=== PATIENT | female | born 1950 | race Caucasian/White ===

== ENCOUNTER 2019-06-10 18:14 | Outpatient (REF) | payer MEDICARE, SELFPAY ==
[2019-06-10 22:04] LABS: Anion Gap 7.5 mmol/L (3-11); BUN 7 mg/dL (7-18); CO2 30.5 mmol/L (21.0-32.0); CREATININE 0.84 mg/dL (0.55-1.02); Calcium 8.9 mg/dL (8.5-10.1); Calculated LDL 106 mg/dL; Chloride 106 mmol/L (98-107); Cholesterol 176 mg/dL (50-200); Glucose 87 mg/dL (70-100); HDL Cholesterol 49 mg/dL (40-60); Potassium 4.1 mmol/L (3.5-5.1); Sodium 144 mmol/L (136-145); Triglyceride 105 mg/dL (30-150)
== END 2019-06-10 18:34 ==
LOC: NCHCN 18:14
PROVIDERS: PCP Family Medicine; Visit Provider Family Medicine
DX: I10 Essential (primary) hypertension (principal); E78.5 Hyperlipidemia, unspecified
CPT/HCPCS: 80048; 80061

== ENCOUNTER 2020-03-23 10:53 | Outpatient (REF) | payer MEDICARE, SELFPAY ==
[2020-03-23 21:23] LABS: Anion Gap 7.6 mmol/L (3-11); BUN 10 mg/dL (7-18); CO2 29.4 mmol/L (21.0-32.0); Calcium 9.3 mg/dL (8.5-10.1); Chloride 103 mmol/L (98-107); Glucose 99 mg/dL (74-106); Potassium 4.5 mmol/L (3.5-5.1); Sodium 140 mmol/L (136-145)
[2020-03-23 21:33] LABS: Hemoglobin A1C 5.8 % (3.8-5.6)
== END 2020-03-23 11:13 ==
LOC: NCHCN 10:53
PROVIDERS: PCP Family Medicine; Visit Provider Family Medicine
DX: I10 Essential (primary) hypertension (principal); Z13.1 Encounter for screening for diabetes mellitus
CPT/HCPCS: 80048; 83036

== ENCOUNTER 2021-05-07 16:57 | Outpatient (REF) | payer MEDICARE, SELFPAY ==
[2021-05-07 21:18] LABS: Anion Gap 7.5 mmol/L (3-11); BUN 14 mg/dL (7-18); CO2 29.5 mmol/L (21.0-32.0); Calcium 9.3 mg/dL (8.5-10.1); Chloride 103 mmol/L (98-107); Estimated GFR 55.14 (mL/min/1.73m2); Glucose 91 mg/dL (74-106); Potassium 4.9 mmol/L (3.5-5.1); Sodium 140 mmol/L (136-145)
== END 2021-05-07 16:58 | disposition home or self-care (01) ==
LOC: NCHCN 16:57
PROVIDERS: PCP Family Medicine; Visit Provider Family Medicine
DX: I10 Essential (primary) hypertension (principal); Z12.2 Encounter for screening for malignant neoplasm of respiratory organs; F32.9 Major depressive disorder, single episode, unspecified; J44.9 Chronic obstructive pulmonary disease, unspecified; R73.03 Prediabetes; M54.5 Low back pain
CPT/HCPCS: 80048

== ENCOUNTER 2022-04-24 18:06 | Outpatient (REF) | payer MEDICARE, SELFPAY ==
[2022-04-24 13:40] LABS: Anion Gap 8.5 mmol/L (3-11); BUN 14 mg/dL (7-18); CO2 29.5 mmol/L (21.0-32.0); Calcium 9.1 mg/dL (8.5-10.1); Calculated LDL 66 mg/dL (<100); Chloride 103 mmol/L (98-107); Cholesterol 132 mg/dL (<200); Estimated GFR 54.97 (mL/min/1.73m2); Glucose 101 mg/dL (74-106); HDL Cholesterol 49 mg/dL (40-60); Potassium 4.8 mmol/L (3.5-5.1); Sodium 141 mmol/L (136-145); Triglyceride 85 mg/dL (<150)
== END 2022-04-24 18:07 | disposition home or self-care (01) ==
LOC: NCHCN 18:06
PROVIDERS: PCP Family Medicine; Visit Provider Family Medicine
DX: I10 Essential (primary) hypertension (principal); E78.5 Hyperlipidemia, unspecified
CPT/HCPCS: 80048; 80061

== ENCOUNTER 2023-05-19 10:40 | Outpatient (REF) | payer MEDICARE, SELFPAY ==
[2023-05-19 16:29] LABS: Anion Gap 8.3 mmol/L (3-11); BUN 13 mg/dL (7-18); CO2 27.7 mmol/L (21.0-32.0); Calcium 9.3 mg/dL (8.5-10.1); Calculated LDL 117 mg/dL (<100); Chloride 100 mmol/L (98-107); Cholesterol 195 mg/dL (<200); Estimated GFR 60.61 (mL/min/1.73m2); Glucose 91 mg/dL (74-106); HDL Cholesterol 47 mg/dL (40-60); Potassium 4.4 mmol/L (3.5-5.1); Sodium 136 mmol/L (136-145); Triglyceride 158 mg/dL (<150)
== END 2023-05-19 10:41 | disposition home or self-care (01) ==
LOC: NCHCN 10:40
PROVIDERS: PCP Family Medicine; Visit Provider Family Medicine
DX: I10 Essential (primary) hypertension (principal); E78.5 Hyperlipidemia, unspecified
CPT/HCPCS: 80048; 80061

== ENCOUNTER 2024-04-21 14:57 | Outpatient (REF) | payer MEDICARE, SELFPAY ==
[2024-04-21 21:50] LABS: Anion Gap 9.1 mmol/L (3-11); BUN 11 mg/dL (7-18); CO2 28.9 mmol/L (21.0-32.0); Calcium 9.6 mg/dL (8.5-10.1); Calculated LDL 64 mg/dL (<100); Chloride 102 mmol/L (98-107); Cholesterol 140 mg/dL (<200); Estimated GFR 60.23 (mL/min/1.73m2); Glucose 100 mg/dL (74-106); HDL Cholesterol 51 mg/dL (40-60); Potassium 4.7 mmol/L (3.5-5.1); Sodium 140 mmol/L (136-145); Triglyceride 127 mg/dL (<150)
== END 2024-04-21 14:58 | disposition home or self-care (01) ==
LOC: NCHCN 14:57
PROVIDERS: PCP Family Medicine; Visit Provider Family Medicine
DX: E78.5 Hyperlipidemia, unspecified (principal); I10 Essential (primary) hypertension
CPT/HCPCS: 80048; 80061

== ENCOUNTER 2025-01-21 11:30 | Inpatient (IN) | payer MEDICARE, SELFPAY ==
[2025-01-21] VITALS (29 sets, daily range): BP systolic 97–189; BP diastolic 39–83; PULSE 77–112; RESP 2–25; TEMP 36.2–37.2; O2SAT 88–99
--- NOTE | 2025-01-21 11:30 | RT.EKG_ITS ---
APPROVED REPORT Exam: Resting ECG Reason for Exam: sob Patient Location: E HR:86 bpm ECG Measurements Heart Rate 86 AXIS OR 154 P 34 QRSd 91 QRS -11 QT 357 T 55 QTc 427 Conclusion Sinus rhythm 86 NORMAL AXIS NO STEMI
[2025-01-21] MEDS: Albuterol/Ipratropium 3 ML UPD VIAL UPD ×3 (11:53)
[2025-01-21] MEDS: methylPREDNISolone SUCC 125 MG VIAL IVP (11:53)
[2025-01-21 12:04] LABS: Abs Immature Grans 0.02 10^3/uL (0.0-0.06); Absolute Basophil Count 0.04 10^3/uL (0.0-0.2); Absolute Eosinophil Count 0.03 10^3/uL (0.0-0.7); Absolute Lymphocyte Count 1.18 10^3/uL (1.2-3.4); Absolute Monocyte Count 0.46 10^3/uL (0.1-0.8); Absolute Neutrophil Count 7.96 10^3/uL (1.2-6.7); BE (Venous) 1 mmol/L (-2-3); Basophils % 0.4 %; Eosinophils % 0.3 %; HCO3 (Venous) 27 mmol/L (23-28); HGB 13.6 g/dL (11.2-15.7); Immature Grans % 0.2 %; Lymphocytes % 12.2 %; MCH 26.2 pg (27.0-33.0); MCHC 30.9 % (32.0-36.0); MCV 85 fL (80-95); MPV 9.6 fL (8.0-11.0); Monocytes % 4.7 %; Neutrophils % 82.2 %; O2 Sat (Venous) 63 %; Platelet Count 283 10^3/uL (130-400); RBC 5.19 10^6/uL (3.93-5.22); RDW 13.3 % (11.7-14.6); RDW-SD 41.5 fL; TCO2 (Venous) 24 mmol/L (24-29); WBC 9.69 10^3/uL (4.4-10.8); pCO2 (Venous) 48 mmHg (41-51); pH (Venous) 7.36 (7.31-7.41); pO2 (Venous) 34 mmHg
--- NOTE | 2025-01-21 12:25 | ED.GENADUL_ITS ---
Discharge Plan Disposition Patient Disposition: Admit to [facility] Condition: Stable Discharge Details Chief Complaint: SOB Clinical Impression: NSTEMI (non-ST elevated myocardial infarction) Primary Care Provider: Jennifer Hernandez ED Provider: Estrellita Bruner Home Meds and New Rx's Prescriptions: No Action lisinopril 5 MG tablet 20 mg PO DAILY umeclidinium-vilanterol [Anoro Ellipta] 62.5-25 mcg/actuation blister with device 1 inh INHALATION DAILY atorvastatin 10 mg tablet 10 mg PO DAILY Patient Comments: TAKE ONE TABLET BY MOUTH EVERY NIGHT fluoxetine 20 mg capsule 20 mg PO DAILY Patient Comments: TAKE ONE CAPSULE BY MOUTH EVERY DAY HPI General Date/Time Provider Initiated Documentation: 01/21/25 11:44 . Limitations to Documentation: no limitations . Information obtained by: patient . HPI Narrative: 74-year-old female with past medical history of COPD, hypertension presents for evaluation of shortness of breath. Reports that 4 days ago she had chest pain and went to the emergency department at an outside facility for evaluation. She reports that she was diagnosed with reflux and sent home with prescription for medication for that. She reports that today she started having significant chest pain, she could not walk around her home without feeling very short of breath and having to take rest. She states that she is normally able to do all of these activities without any difficulty. She denies any fever or chills. She reports a chronic cough, but no significant mucus production. She reports that she did use her inhaler but this did not improve her symptoms of shortness of breath. She denies any oxygen use at home. She does report that she was a previous smoker. Related Data Home Medications ?Medication ?Instructions ?Recorded ?Confirmed lisinopril 5 mg tablet 20 mg PO DAILY 10/01/15 01/21/25 atorvastatin 10 mg tablet 10 mg PO DAILY 01/21/25 01/21/25 fluoxetine 20 mg capsule 20 mg PO DAILY 01/21/25 01/21/25 umeclidinium 62.5 mcg-vilanterol 1 inh inhalation DAILY 01/21/25 01/21/25 25 mcg/actuation powdr for inhalation (Anoro Ellipta) Allergies Allergy/AdvReac Type Severity Reaction Status Date / Time No Known Allergies Allergy Verified 01/21/25 13:12 General Stated Complaint: SOB MICHAEL: 2 Exam Narrative Exam Narrative: Review of Systems: All systems reviewed & are unremarkable except as noted in HPI and below Well-developed, mild respiratory distress Afebrile NCAT rRR no murmur, Mild tachypnea, hypoxia 88% on room air, no wheezing appreciated, but diminished breath sounds throughout, more notably on the right lung ruiz Oxygen saturation improved on 2 L Nondistended abdomen Extremities w/o edema Course Vital Signs Vital signs: Vital Signs Temperature 36.9 C 01/21/25 11:35 Pulse 106 H 01/21/25 11:35 Respiratory Rate 22 01/21/25 11:35 Blood Pressure 154/83 H 01/21/25 11:35 Pulse Oximetry 88 L 01/21/25 11:35 Temperature 36.9 C 01/21/25 11:35 Pulse 106 H 01/21/25 11:35 Respiratory Rate 22 01/21/25 11:35 Respiratory Effort Short of Breath 01/21/25 11:46 Blood Pressure 154/83 H 01/21/25 11:35 Pulse Oximetry 88 L 01/21/25 11:35 Oxygen Delivery Method Room Air 01/21/25 11:35 Oxygen Flow Rate 0 01/21/25 11:35 Pain Level 3 01/21/25 11:35 Lab/Test Results Lab/Test Results: Laboratory Tests Range/Units 01/21/25 01/21/25 11:44 11:56 WBC (4.4-10.8) 10^3/uL 9.69 RBC (3.93-5.22) 10^6/uL 5.19 Hgb (11.2-15.7) g/dL 13.6 Hct (36.0-46.0) % 44.0 MCV (80-95) fL 85 MCH (27.0-33.0) pg 26.2 L MCHC (32.0-36.0) % 30.9 L RDW (11.7-14.6) % 13.3 Plt Count (130-400) 10^3/uL 283 MPV (8.0-11.0) fL 9.6 Immature Gran % % 0.2 Neutrophils % % 82.2 Lymphocytes % % 12.2 Monocytes % % 4.7 Eosinophils % % 0.3 Basophils % % 0.4 Nucleated RBC % (0.0-0.3) % 0.0 Absolute Neutrophils (1.2-6.7) 10^3/uL 7.96 H Absolute Lymphocytes (1.2-3.4) 10^3/uL 1.18 L Absolute Monocytes (0.1-0.8) 10^3/uL 0.46 Absolute Eosinophils (0.0-0.7) 10^3/uL 0.03 Absolute Basophils (0.0-0.2) 10^3/uL 0.04 VBG pH (7.31-7.41) 7.36 VBG pCO2 (41-51) mmHg 48 VBG pO2 mmHg 34 VBG HCO3 (23-28) mmol/L 27 VBG Total CO2 (24-29) mmol/L 24 VBG O2 Saturation % 63 VBG Base Excess (-2-3) mmol/L 1 NT-Pro-B Natriuret Pep Cancelled Medical Decision Making Emergent evaluation of shortness of breath. Initial differential includes ACS, COPD exacerbation, pneumonia, viral illness. Patient was hypoxic on arrival in the emergency department. She does not have a history of oxygen dependence. She has no fever or other sick symptoms. But she did have a recent emergency department visit for chest pain which is concerning to me. Her blood work including troponin were negative at that time. EKG reviewed and independently interpreted: Sinus 86 normal axis, no acute ischemic changes. Plan for steroids, bronchodilator treatment, x-ray and repeat lab work today. Lab work reviewed and first troponin is elevated at 82 which is concerning delta from her troponin values obtained at outside emergency department a few days ago. She reports no significant change after the breathing treatment. Chest x- ray does not reveal a focal consolidation, pleural effusion or significant cardiomegaly. Given her delta troponin and complaint of chest tightness that is not likely to be from a respiratory etiology, she was given nitroglycerin, full dose aspirin, loaded with Plavix and started on a heparin infusion. Discussed with cardiology at [facility] who does accept the patient for transfer, likely bed availability tomorrow. Accepting physician Dr. Aguirre. They are also recommending high-dose statin as well as low-dose beta-rosa for help with heart rate and blood pressure control. An echocardiogram should be obtained if available. The repeat troponin was slightly more elevated, these should continue to trend. After the single dose of nitroglycerin, the patient reports resolution of her chest tightness. Patient will be admitted to the hospital here pending transfer to [facility]. Quality:SDOH Health Related Social Needs: No Data to Display Critical Care Time Critical Care Time Critical Care Time: Yes Total Critical Care Time: 34 Attestation: CRITICAL CARE Upon my evaluation, this patient had a high probability of imminent or life- threatening deterioration due to NSTEMI which required my direct attention, intervention, and personal management. I have personally provided 34 minutes of critical care time exclusive of time spent on separately billable procedures. Time includes review of laboratory data, radiology results, discussion with consultants, and monitoring for potential decompensation. Interventions were performed as documented above [facility] All Active Problems (Updated 01/21/25 @ 14:10 by Estrellita Bruner MD) NSTEMI (non-ST elevated myocardial infarction) (Acute) Social History Smoking/Tobacco Use Status: Former Tobacco Use Smoking risk assessment performed?: Yes Drug use: Never Substance use type: does not use
[2025-01-21 12:29] LABS: ALT 29 U/L (14-59); AST 23 U/L (15-37); Albumin 3.6 g/dL (3.4-5.0); Alkaline Phosphatase 93 U/L (46-116); Anion Gap 8.7 mmol/L (3-11); BUN 9 mg/dL (7-18); Bilirubin, Total 0.4 mg/dL (0.2-1.0); CO2 27.3 mmol/L (21.0-32.0); CREATININE 1.1 mg/dL (0.55-1.02); Calcium 8.9 mg/dL (8.5-10.1); Chloride 105 mmol/L (98-107); Estimated GFR 53.39 (mL/min/1.73m2); Glucose 130 mg/dL (74-106); Magnesium 1.9 mg/dL (1.8-2.4); NT-proBNP 206 pg/mL (<300); Potassium 4.1 mmol/L (3.5-5.1); Sodium 141 mmol/L (136-145); Total Protein 7.9 g/dL (6.4-8.2)
[2025-01-21 12:33] LABS: Troponin I 82 ng/L (<or=51)
--- NOTE | 2025-01-21 12:36 | DI.RAD_ITS ---
Exam(s) XR PORTABLE CHEST AP EXAM: XR PORTABLE CHEST AP CLINICAL HISTORY: sob TECHNIQUE: 2D digital imaging was performed. COMPARISON: No exams were available for comparison FINDINGS: LUNGS: Clear. No pleural abnormality seen. HEART: Normal size. AORTA: Normal diameter. Calcification at the aortic arch BONES: Unremarkable for age. Soft tissues: Unremarkable. IMPRESSION: No acute findings. The preliminary [facility] report was reviewed. DATA REPOSITORY: RADIATION DOSE DELIVERED:
[2025-01-21] MEDS: Heparin in 0.45% NaCl 25,000 UNIT/250 ML BAG 10 UNIT IVINF (12:46)
[2025-01-21] MEDS: Clopidogrel 300 MG TAB 600 MG PO (12:49)
[2025-01-21] MEDS: Aspirin 325 MG TAB PO (12:49)
[2025-01-21] MEDS: nitroGLYcerin 0.4 MG TAB SL ×2 (12:54→13:35)
--- NOTE | 2025-01-21 13:17 | DI.[facility]_ITS ---
PROCEDURE INFORMATION: Exam: XR Chest Exam date and time: 01/21/2025 12:37 PM Age: 74 years old Clinical indication: Shortness of breath TECHNIQUE: Imaging protocol: Radiologic exam of the chest. Views: 1 view. COMPARISON: No relevant prior studies available. FINDINGS: Lungs: Unremarkable. No consolidation. Pleural spaces: Unremarkable. No pleural effusion. No pneumothorax. Heart/Mediastinum: Unremarkable. No cardiomegaly. Vasculature: Atherosclerotic disease. Bones/joints: Unremarkable for patient's age. IMPRESSION: No acute cardiopulmonary findings. Dictated and Authenticated by: Carole Blevins MD. Orderin Franc Berg MD
[2025-01-21] MEDS: Acetaminophen 500 MG TAB 1000 MG PO (13:20)
[2025-01-21] MEDS: Lisinopril 10 MG TAB 20 MG PO (13:20)
[2025-01-21 13:28] LABS: Troponin I 117 ng/L (<or=51)
[2025-01-21] MEDS: ALPRAZolam 0.5 MG TAB PO (13:34)
--- NOTE | 2025-01-21 13:49 | HPE_ITS ---
Date of service: 01/21/25 Time of Service: 13:49 Assessment and Plan Assessment and plan (1) NSTEMI (non-ST elevated myocardial infarction): Status: Acute Assessment and plan: As per symptomatology and EKG as well as troponin trends On Thursday as she woke up with chest pain that was unprovoked-resolved without nitroglycerin Continue to trend troponin Heparin drip as per protocol Continue daily Plavix and aspirin Initiate metoprolol to tartrate low-dose with parameters was already on lisinopril for hypertension treatment and will continue High-intensity statin was on low-dose at home Accepted at [facility] cardiology by Dr. Aguirre pending bed availability (2) COPD (chronic obstructive pulmonary disease): Status: Chronic Assessment and plan: Continue home meds (3) Hypertension: Status: Chronic Assessment and plan: Continue home meds (4) Hyperlipidemia: Status: Acute Assessment and plan: As per point 1 (5) Contraindication to deep vein thrombosis (DVT) prophylaxis: Status: Acute Assessment and plan: As per point [address] Magallon History of Present Illness History of Present Illness Chief Complaint: Chest pain Narrative: 74-year-old female with past medical history of non- oxygen dependent COPD, hypertension presents the the ED for evaluation of shortness of breath. Reported going to another facilty that 4 days ago w c/o chest pain and discharged s/p reflux Dx and treatment and no further chest pain , negative troponins and EKG. and went to the emergency department at an outside facility for evaluation. She reports that today she started having significant chest heaviness/pressure pain and that she could not walk around her home without feeling very short of breath and having to take rest. She reported diaphoresis at home, tingling to her legs and denies any fever or chills, nausea, vomiting, abdominal pain ore dysuria. She reports a, right shoulder pain on mobilization, chronic cough, but no significant mucus production. She reports use of her inhaler but w/o improvement her symptoms of shortness of breath. Work up in the ED showed positive troponins at 82 then 117, EKG showed ST depression in lateral leads and questionable ST elevation in V1 and V2 with T- wave inversion. The patient was treated with nitroglycerin, full dose aspirin, loaded with Plavix and started on a heparin infusion. ED provider discussed the case with cardiology at [facility] with acceptance of the patient by Dr. Aguirre pending bed availability( likely on 01/22/25) who accept the patient for transfer, likely bed availability tomorrow. They are also recommending high- dose statin as well as low-dose beta-rosa for help with heart rate and blood pressure control. An echocardiogram should be obtained if available. Full code status confirmed with patient. Review of Systems All systems reviewed & are unremarkable except as noted in HPI and below PFSH All Active Problems (Updated 01/21/25 @ 16:08 by Alina Parson APRN) Contraindication to deep vein thrombosis (DVT) prophylaxis (Acute) Hyperlipidemia (Acute) Hypertension (Chronic) COPD (chronic obstructive pulmonary disease) (Chronic) NSTEMI (non-ST elevated myocardial infarction) (Acute) Social History Smoking/Tobacco Use Status: Former Tobacco Use Smoking risk assessment performed?: Yes Drug use: Never Substance use type: does not use Housing: house Meds Allergies and Home Medications Allergies Allergy/AdvReac Type Severity Reaction Status Date / Time No Known Allergies Allergy Verified 01/21/25 13:12 Home Medications ?Medication ?Instructions ?Recorded ?Confirmed ?Type lisinopril 5 mg tablet 20 mg PO DAILY 10/01/15 01/21/25 History atorvastatin 10 mg tablet 10 mg PO DAILY 01/21/25 01/21/25 History fluoxetine 20 mg capsule 20 mg PO DAILY 01/21/25 01/21/25 History umeclidinium 62.5 mcg-vilanterol 1 inh inhalation DAILY 01/21/25 01/21/25 History 25 mcg/actuation powdr for inhalation (Anoro Ellipta) Exam Narrative Exam Narrative: 24-year-old female patient appearing of stated age, without acute distress, alert oriented x 4, nonfocal, moves all 4 extremities, clear lungs with decreased bibasilar breath sounds, S1-S2, no murmur, positive upper extremities, abdomen is nondistended soft nontender, no CVA tenderness. Results Labs 01/21/25 11:56 01/21/25 11:56 Labs: Laboratory Results - last 24 hr 01/21/25 01/21/25 01/21/25 11:44 11:56 12:50 WBC 9.69 RBC 5.19 Hgb 13.6 Hct 44.0 MCV 85 MCH 26.2 L MCHC 30.9 L RDW 13.3 Plt Count 283 MPV 9.6 Immature Gran % 0.2 Neutrophils % 82.2 Lymphocytes % 12.2 Monocytes % 4.7 Eosinophils % 0.3 Basophils % 0.4 Nucleated RBC % 0.0 Absolute Neutrophils 7.96 H Absolute Lymphocytes 1.18 L Absolute Monocytes 0.46 Absolute Eosinophils 0.03 Absolute Basophils 0.04 APTT 23.0 VBG pH 7.36 VBG pCO2 48 VBG pO2 34 VBG HCO3 27 VBG Total CO2 24 VBG O2 Saturation 63 VBG Base Excess 1 Sodium 141 Potassium 4.1 Chloride 105 Carbon Dioxide 27.3 Anion Gap 8.7 BUN 9 Creatinine 1.1 H Est GFR (CKD-EPI 2020) 53.39 Glucose 130 H Calcium 8.9 Magnesium 1.9 Total Bilirubin 0.4 AST 23 ALT 29 Alkaline Phosphatase 93 Troponin I 82 H* NT-Pro-B Natriuret Pep Cancelled 206 Total Protein 7.9 Albumin 3.6 01/21/25 13:02 WBC RBC Hgb Hct MCV MCH MCHC RDW Plt Count MPV Immature Gran % Neutrophils % Lymphocytes % Monocytes % Eosinophils % Basophils % Nucleated RBC % Absolute Neutrophils Absolute Lymphocytes Absolute Monocytes Absolute Eosinophils Absolute Basophils APTT VBG pH VBG pCO2 VBG pO2 VBG HCO3 VBG Total CO2 VBG O2 Saturation VBG Base Excess Sodium Potassium Chloride Carbon Dioxide Anion Gap BUN Creatinine Est GFR (CKD-EPI 2020) Glucose Calcium Magnesium Total Bilirubin AST ALT Alkaline Phosphatase Troponin I 117 H* NT-Pro-B Natriuret Pep Total Protein Albumin Last Vital Signs Temp 36.9 C 01/21/25 11:35 Pulse 92 H 01/21/25 13:31 Resp 23 01/21/25 13:31 BP 158/53 H 01/21/25 13:31 Pulse Ox 93 01/21/25 13:31 Time Spent Time spent with Patient: 55-74 minutes Time was spent: preparing to see the patient(eg.review tests), obtaining and/or reviewing separately otained hiistory, ordering medications,tests, procedures, referring, communicating with other health healthcare advisory services manager, indepentently interpreting results, counseling the patient and care coordination
--- NOTE | 2025-01-21 14:57 | W.PC.ACHO ---
Registration Status: Primary Language: Preferred Language: ED Information & Data Chief Complaint SOB 01/21/25 12:28 Triage Note SOB denies CP but does feel 01/21/25 11:35 weak. had CP thursday night was seen in [place] ED. pt has had back back for 2-3 weeks that now wraps around into chest Most Recent Vital Signs Temperature 36.9 C 01/21/25 11:35 Pulse 92 H 01/21/25 13:31 Pulse 93 H 01/21/25 13:31 Respiratory Rate 23 01/21/25 13:31 Respiratory Effort Short of Breath 01/21/25 11:46 Blood Pressure 158/53 H 01/21/25 13:31 Blood Pressure Mean 89 01/21/25 13:31 Pulse Oximetry 93 01/21/25 13:31 Oxygen Delivery Method Room Air 01/21/25 11:35 Oxygen Flow Rate 0 01/21/25 11:35 Pain Level 2 01/21/25 12:54 Allergies No Known Allergies Allergy (Verified 01/21/25 13:12) Active Medications Generic Name Dose Route Start Last Admin Trade Name Freq PRN Reason Stop Dose Admin Heparin Sodium/Sodium Chloride 25,000 unit in 250 mls @ 10 mls/hr 01/21/25 12:45 01/21/25 12:46 IVINF 1,000 units/hr INFUSION JAVIER 10 mls/hr Administration Protocol 1,000 UNITS/HR Nitroglycerin 0.4 mg 01/21/25 12:44 01/21/25 13:35 Nitroglycerin 0.4 Mg Tab SL 0.4 mg Q5 MIN PRN X3 PRN Administration IV IV Catheter Type [Left Saline Lock Antecubital] IV Catheter Gauge [Left 18 Antecubital] Diagnostics 01/21/25 01/21/25 01/21/25 Range/Units 14:45 13:02 12:50 WBC (4.4-10.8) 10^3/uL RBC (3.93-5.22) 10^6/uL Hgb (11.2-15.7) g/dL Hct (36.0-46.0) % MCV (80-95) fL MCH (27.0-33.0) pg MCHC (32.0-36.0) % RDW (11.7-14.6) % Plt Count (130-400) 10^3/uL MPV (8.0-11.0) fL Immature Gran % % Neutrophils % % Lymphocytes % % Monocytes % % Eosinophils % % Basophils % % Nucleated RBC % (0.0-0.3) % Absolute Neutrophils (1.2-6.7) 10^3/uL Absolute Lymphocytes (1.2-3.4) 10^3/uL Absolute Monocytes (0.1-0.8) 10^3/uL Absolute Eosinophils (0.0-0.7) 10^3/uL Absolute Basophils (0.0-0.2) 10^3/uL APTT 23.0 (20.6-30.2) sec VBG pH (7.31-7.41) VBG pCO2 (41-51) mmHg VBG pO2 mmHg VBG HCO3 (23-28) mmol/L VBG Total CO2 (24-29) mmol/L VBG O2 Saturation % VBG Base Excess (-2-3) mmol/L Sodium (136-145) mmol/L Potassium (3.5-5.1) mmol/L Chloride (98-107) mmol/L Carbon Dioxide (21.0-32.0) mmol/L Anion Gap (3-11) mmol/L BUN (7-18) mg/dL Creatinine (0.55-1.02) mg/dL Est GFR (CKD-EPI 2020) (mL/min/1.73m2) Glucose (74-106) mg/dL Calcium (8.5-10.1) mg/dL Magnesium (1.8-2.4) mg/dL Total Bilirubin (0.2-1.0) mg/dL AST (15-37) U/L ALT (14-59) U/L Alkaline Phosphatase (46-116) U/L Troponin I Pending 117 H* (<or=51) ng/L NT-Pro-B Natriuret Pep Total Protein (6.4-8.2) g/dL Albumin (3.4-5.0) g/dL 01/21/25 01/21/25 Range/Units 11:56 11:44 WBC 9.69 (4.4-10.8) 10^3/uL RBC 5.19 (3.93-5.22) 10^6/uL Hgb 13.6 (11.2-15.7) g/dL Hct 44.0 (36.0-46.0) % MCV 85 (80-95) fL MCH 26.2 L (27.0-33.0) pg MCHC 30.9 L (32.0-36.0) % RDW 13.3 (11.7-14.6) % Plt Count 283 (130-400) 10^3/uL MPV 9.6 (8.0-11.0) fL Immature Gran % 0.2 % Neutrophils % 82.2 % Lymphocytes % 12.2 % Monocytes % 4.7 % Eosinophils % 0.3 % Basophils % 0.4 % Nucleated RBC % 0.0 (0.0-0.3) % Absolute Neutrophils 7.96 H (1.2-6.7) 10^3/uL Absolute Lymphocytes 1.18 L (1.2-3.4) 10^3/uL Absolute Monocytes 0.46 (0.1-0.8) 10^3/uL Absolute Eosinophils 0.03 (0.0-0.7) 10^3/uL Absolute Basophils 0.04 (0.0-0.2) 10^3/uL APTT (20.6-30.2) sec VBG pH 7.36 (7.31-7.41) VBG pCO2 48 (41-51) mmHg VBG pO2 34 mmHg VBG HCO3 27 (23-28) mmol/L VBG Total CO2 24 (24-29) mmol/L VBG O2 Saturation 63 % VBG Base Excess 1 (-2-3) mmol/L Sodium 141 (136-145) mmol/L Potassium 4.1 (3.5-5.1) mmol/L Chloride 105 (98-107) mmol/L Carbon Dioxide 27.3 (21.0-32.0) mmol/L Anion Gap 8.7 (3-11) mmol/L BUN 9 (7-18) mg/dL Creatinine 1.1 H (0.55-1.02) mg/dL Est GFR (CKD-EPI 2020) 53.39 (mL/min/1.73m2) Glucose 130 H (74-106) mg/dL Calcium 8.9 (8.5-10.1) mg/dL Magnesium 1.9 (1.8-2.4) mg/dL Total Bilirubin 0.4 (0.2-1.0) mg/dL AST 23 (15-37) U/L ALT 29 (14-59) U/L Alkaline Phosphatase 93 (46-116) U/L Troponin I 82 H* (<or=51) ng/L NT-Pro-B Natriuret Pep 206 Cancelled Total Protein 7.9 (6.4-8.2) g/dL Albumin 3.6 (3.4-5.0) g/dL Intake and Output - 24 Hour Total 01/21/25 11:30 thru 01/21/25 11:35 Weight 100 kg Falls Risk Assessment Ambulatory Aids Independent 01/21/25 11:45 Tubes/Lines None 01/21/25 11:45 Cognition No cognitive impairment 01/21/25 11:45 Fall Total Score 0 01/21/25 11:45 Level of Risk Standard/Low Risk 01/21/25 11:45 Problems NSTEMI (non-ST elevated myocardial infarction) (Acute) v v v v v v v v v Sending and/or Receiving Nurses: Please use comment section below to note any information pertinent to the patient hand-off not included above. Information / Comments: Admit paged at [phone], called at [phone] told they will call back, ED returned call at [phone]. Report received from: Soheila Hurd RN
[2025-01-21 15:38] LABS: COVID-19 PCR Negative (Negative); Influenza A PCR Negative (Negative); Influenza B PCR Negative (Negative); RSV PCR Negative (Negative)
[2025-01-21 15:39] LABS: Source Nasopharynx
[2025-01-21 16:02] LABS: Troponin I 122 ng/L (<or=51)
[2025-01-21] MEDS: Metoprolol 12.5 MG TAB PO (17:32)
[2025-01-21] MEDS: Atorvastatin 10 MG TAB 40 MG PO (17:32)
[2025-01-21 19:19] LABS: PTT Activated 69.5 sec (20.6-30.2)
[2025-01-21 19:36] LABS: Troponin I 101 ng/L (<or=51)
[2025-01-21] MEDS: Normal Saline Flush 10 ML SYR IVP (20:56)
--- NOTE | 2025-01-21 21:10 | W.PM.DS.N ---
Date of service: 01/21/25 Time of Service: 21:10 DS: Diagnosis Discharge Diagnosis (1) NSTEMI (non-ST elevated myocardial infarction): Start date: 01/21/25 Status: Acute Asessment and Plan: Awakened with chest pain 3 days prior to presentation which self resolved without nitroglycerin. Troponins were elevated when evaluated in the ED peaked at 122 now declining to 101. She is pain-free. On heparin infusion with maximal medical therapy and now ready for [place] [facility] [place]. (2) COPD (chronic obstructive pulmonary disease): Status: Chronic Asessment and Plan: Patient presentation to the ED this visit was for shortness of breath. Stable on home meds but on oxygen supplement. (3) Hypertension: Status: Chronic Asessment and Plan: On modified medical therapy with metoprolol initiated. (4) Hyperlipidemia: Status: Acute Asessment and Plan: On high-dose statin. (5) Contraindication to deep vein thrombosis (DVT) prophylaxis: Status: Acute Asessment and Plan: On heparin infusion with non-STEMI. Discharge Plan Disposition Patient Disposition: Transfer-Acute Inpatient Care Specific Acute In Facility: [facility] Condition: Stable Discharge Details Reason For Visit: ACS Admit Date/Time: 01/21/25 13:48 Admit Provider: Perfecto Magallon Attending Provider: Perfecto Magallon Primary Care Provider: Jennifer Hernandez Hospital Course Hospital Course: This is a 74-year-old lady who presented to the ED with progressive dyspnea with exertion and now at rest and has a history of COPD which is not oxygen dependent. She had a recurring more severe episode of resting chest pain with pressure when she would lay down to go to bed after being in bed in supine. It would not awaken her as with PND. She denied any previous dyspnea with exertion, peripheral edema or weight gain. She has no history of CHF and her BNP was normal. This more severe episode was 3 days prior to this presentation. Her troponins were elevated upon presentation to the ED and peaked, now plateaued, on heparin infusion for non-STEMI. She has been transferred [place] [facility] [place]. See H&P for details of full history and physical. Patient was admitted the same day of transfer. She was chest pain free but still dyspneic with exertion to the bathroom at transfer and on O2 supplementation. She will be transferred via ambulance with ACLS protocol and a medic. He will receive 1 mg of Ativan prior to transfer with patient having increased anxiety. She is a full code. Home Meds and New Rx's Prescriptions: No Action lisinopril 5 MG tablet 20 mg PO DAILY umeclidinium-vilanterol [Anoro Ellipta] 62.5-25 mcg/actuation blister with device 1 inh INHALATION DAILY atorvastatin 10 mg tablet 10 mg PO DAILY Patient Comments: TAKE ONE TABLET BY MOUTH EVERY NIGHT fluoxetine 20 mg capsule 20 mg PO DAILY Patient Comments: TAKE ONE CAPSULE BY MOUTH EVERY DAY Discharge Instructions Activity:: Bedrest Equipment/Supplies:: No Equipment Needed Diet:: NPO Discharge Orders Discharge Orders: Discharge Order (Routine); Ordered 01/21/25 Ordered By: Ruben Fitch DS: Summary Time Spent with Patient providing and/or coordinating discharge services: Greater than 30 minutes Status at Discharge Functional status at discharge: bed bound Overall status at discharge: other (Stable) Mental Status: mental status grossly normal Speech and Movement: speech and movement normal Mood: congruent mood and anxious mood Affect: anxious affect Quality:SDOH Health Related Social Needs: No Data to Display Exam Psych Mental Status: mental status grossly normal Speech and Movement: speech and movement normal Mood: congruent mood and anxious mood Affect: anxious affect DS: Data Vitals/I&O Vitals and I&O: Vital Signs Temperature 37.2 C 01/21/25 19:44 Temperature Source Tympanic 01/21/25 19:44 Pulse 81 01/21/25 19:44 Pulse Rhythm Regular 01/21/25 15:17 Pulse 93 H 01/21/25 13:31 Respiratory Rate 22 01/21/25 19:44 Respiratory Effort Normal, Non-Labored, Short of Breath 01/21/25 15:17 Respiratory Depth Normal 01/21/25 15:17 Respiratory Pattern Normal 01/21/25 15:17 Blood Pressure 141/78 H 01/21/25 19:44 Blood Pressure Mean 99 01/21/25 19:44 Pulse Oximetry 94 01/21/25 19:44 Oxygen Delivery Method Nasal Cannula 01/21/25 19:44 Oxygen Flow Rate 0.5 01/21/25 19:44 Pain Level 0 01/21/25 19:44 Intake & Output 01/20/25 01/21/25 01/21/25 23:59 11:59 23:59 Output Total 400 / 400 Balance -400 / -400 Weight 100 kg Output: Urine 400 / 400 Other: Urine Color Yellow Urine Appearance Clear Urine Odor Strong Data Completed and Pending Labs on day of discharge: Labs from last 24 hours 01/21/25 01/21/25 01/21/25 19:00 15:01 14:41 WBC RBC Hgb Hct MCV MCH MCHC RDW Plt Count MPV Immature Gran % Neutrophils % Lymphocytes % Monocytes % Eosinophils % Basophils % Nucleated RBC % Absolute Neutrophils Absolute Lymphocytes Absolute Monocytes Absolute Eosinophils Absolute Basophils APTT 69.5 H VBG pH VBG pCO2 VBG pO2 VBG HCO3 VBG Total CO2 VBG O2 Saturation VBG Base Excess Sodium Potassium Chloride Carbon Dioxide Anion Gap BUN Creatinine Est GFR (CKD-EPI 2020) Glucose Calcium Magnesium Total Bilirubin AST ALT Alkaline Phosphatase Troponin I 101 H* 122 H* NT-Pro-B Natriuret Pep Total Protein Albumin COVID-19 Source Nasopharynx SARS-CoV-2 (PCR) Negative Influenza Type A (PCR) Negative Influenza Type B (PCR) Negative RSV (PCR) Negative 01/21/25 01/21/25 01/21/25 13:02 12:50 11:56 WBC 9.69 RBC 5.19 Hgb 13.6 Hct 44.0 MCV 85 MCH 26.2 L MCHC 30.9 L RDW 13.3 Plt Count 283 MPV 9.6 Immature Gran % 0.2 Neutrophils % 82.2 Lymphocytes % 12.2 Monocytes % 4.7 Eosinophils % 0.3 Basophils % 0.4 Nucleated RBC % 0.0 Absolute Neutrophils 7.96 H Absolute Lymphocytes 1.18 L Absolute Monocytes 0.46 Absolute Eosinophils 0.03 Absolute Basophils 0.04 APTT 23.0 VBG pH 7.36 VBG pCO2 48 VBG pO2 34 VBG HCO3 27 VBG Total CO2 24 VBG O2 Saturation 63 VBG Base Excess 1 Sodium 141 Potassium 4.1 Chloride 105 Carbon Dioxide 27.3 Anion Gap 8.7 BUN 9 Creatinine 1.1 H Est GFR (CKD-EPI 2020) 53.39 Glucose 130 H Calcium 8.9 Magnesium 1.9 Total Bilirubin 0.4 AST 23 ALT 29 Alkaline Phosphatase 93 Troponin I 117 H* 82 H* NT-Pro-B Natriuret Pep 206 Total Protein 7.9 Albumin 3.6 COVID-19 Source SARS-CoV-2 (PCR) Influenza Type A (PCR) Influenza Type B (PCR) RSV (PCR) 01/21/25 11:44 WBC RBC Hgb Hct MCV MCH MCHC RDW Plt Count MPV Immature Gran % Neutrophils % Lymphocytes % Monocytes % Eosinophils % Basophils % Nucleated RBC % Absolute Neutrophils Absolute Lymphocytes Absolute Monocytes Absolute Eosinophils Absolute Basophils APTT VBG pH VBG pCO2 VBG pO2 VBG HCO3 VBG Total CO2 VBG O2 Saturation VBG Base Excess Sodium Potassium Chloride Carbon Dioxide Anion Gap BUN Creatinine Est GFR (CKD-EPI 2020) Glucose Calcium Magnesium Total Bilirubin AST ALT Alkaline Phosphatase Troponin I NT-Pro-B Natriuret Pep Cancelled Total Protein Albumin COVID-19 Source SARS-CoV-2 (PCR) Influenza Type A (PCR) Influenza Type B (PCR) RSV (PCR) PFSH All Active Problems Contraindication to deep vein thrombosis (DVT) prophylaxis (Acute) Hyperlipidemia (Acute) Hypertension (Chronic) COPD (chronic obstructive pulmonary disease) (Chronic) NSTEMI (non-ST elevated myocardial infarction) (Acute) Social History Smoking/Tobacco Use Status: Former Tobacco Use Smoking risk assessment performed?: Yes Drug use: Never Substance use type: does not use Housing: house Time Spent with Patient Time Spent with Patient: <45 minutes Time was spent: preparing to see the patient(eg.review tests), obtaining and/or reviewing separately otained hiistory, indepentently interpreting results, counseling the patient and care coordination
[2025-01-21] MEDS: LORazepam 1 MG TAB PO (21:39)
--- NOTE | 2025-01-21 23:17 | NUR.NOTE ---
Hand off report to Esperanza at [facility] [place] 23:00pm. Information provided on VS, current medication given. Pt. was transferred via ambulance, VS stable. Pt. is A x O4, no complaints of SOB/ .
--- NOTE | 2025-01-22 12:57 | NUR.NOTE ---
Nursing Note: I called patient's daughter, Elisa to inform her that her mother's inhalers were left at [facility] and will be at the pharmacy to be collected by the family. Elisa said she would come by to pick them up from pharmacy.
== END 2025-01-21 23:09 | disposition short-term general hospital (02) | DRG 282 ==
LOC: ER 14:10 → MS 15:08
PROVIDERS: Admitting Provider Family Medicine; Emergency Provider Emergency Medicine; PCP Family Medicine; Responsible Provider Nurse Practitioner Acute Care; Visit Provider Family Medicine
DX: I21.4 Non-ST elevation (NSTEMI) myocardial infarction (principal); I10 Essential (primary) hypertension; J44.9 Chronic obstructive pulmonary disease, unspecified; E78.5 Hyperlipidemia, unspecified; Z79.899 Other long term (current) drug therapy; Z87.891 Personal history of nicotine dependence
CPT/HCPCS: 00123; 36415; 80053; 82805; 87637; 93005; 94640; 96365; 96375; 99291; 71045; 83735; 83880; 84484; 85025; 85730; 93010; 99223; 99239; J1644; J2919; J3490; J7620

== ENCOUNTER 2025-01-31 17:36 | Outpatient (REF) | payer MEDICARE, SELFPAY ==
[2025-01-31 21:01] LABS: TSH (W/Ref FT4) 1.67 uIU/mL (0.36-3.74)
== END 2025-01-31 17:37 | disposition home or self-care (01) ==
LOC: NCHCN 17:36
PROVIDERS: PCP Family Medicine; Visit Provider Family Medicine
DX: R68.89 Other general symptoms and signs (principal)
CPT/HCPCS: 84443

== ENCOUNTER 2025-05-31 13:58 | Outpatient (REF) | payer MEDICARE, SELFPAY ==
[2025-05-31 21:02] LABS: HCT 46.0 % (36.0-46.0); HGB 14.3 g/dL (11.2-15.7); MCH 26.5 pg (27.0-33.0); MCHC 31.1 % (32.0-36.0); MCV 85 fL (80-95); MPV 10.3 fL (8.0-11.0); Platelet Count 347 10^3/uL (130-400); RBC 5.40 10^6/uL (3.93-5.22); RDW 14.4 % (11.7-14.6); RDW-SD 44.3 fL; WBC 8.73 10^3/uL (4.4-10.8)
[2025-05-31 21:08] LABS: Anion Gap 8.2 mmol/L (3-11); BUN 12 mg/dL (7-18); CO2 29.8 mmol/L (21.0-32.0); Calcium 9.6 mg/dL (8.5-10.1); Chloride 105 mmol/L (98-107); Estimated GFR 59.86 (mL/min/1.73m2); Glucose 113 mg/dL (74-106); Potassium 4.3 mmol/L (3.5-5.1); Sodium 143 mmol/L (136-145)
[2025-05-31 22:30] LABS: Calculated LDL 54 mg/dL (<100); Cholesterol 116 mg/dL (<200); HDL Cholesterol 49 mg/dL (>or=50); Triglyceride 67 mg/dL (<150)
== END 2025-05-31 13:59 | disposition home or self-care (01) ==
LOC: NCHCN 13:58
PROVIDERS: PCP Family Medicine; Visit Provider Family Medicine
DX: Z13.220 Encounter for screening for lipoid disorders (principal); Z79.01 Long term (current) use of anticoagulants; I10 Essential (primary) hypertension
CPT/HCPCS: 80048; 80061; 85027